=== PATIENT | female | born 1980 | race Hispanic/Latino ===

== ENCOUNTER 2017-01-24 06:54 | Emergency (ER) | payer OTHER ==
[2017-01-22 17:57] VITALS: BMI 34.0
--- NOTE | 2017-01-24 09:28 | US ---
PROCEDURE: Limited obstetrical ultrasound examination HISTORY: decreased movement at 40w COMPARISON: 01/22/2017 TECHNIQUE: Limited examination was performed for evaluation of biophysical profile. FINDINGS: A single live intrauterine gestation is identified in cephalic presentation. The heart rate is 147 beats per minute. A normal anterior placenta is identified. biometry was not performed at this time. Amniotic fluid volume is 9.94 cm. This is above the 5th percentile for a 40 week gestation. Biophysical profile score is 8 out of 8. IMPRESSION: Biophysical profile score is 8 out of 8. biometry is not performed at this time. heart rate 147 beats per minute.
== END 2017-01-24 10:40 | disposition home or self-care (01) ==
LOC: H.EROB2 06:54
DX: O47.1 False labor at or after 37 completed weeks of gestation (principal); Z3A.40 40 weeks gestation of pregnancy; O48.0 Post-term pregnancy; O36.8131 Decreased fetal movements, third trimester, fetus 1

== ENCOUNTER 2017-01-29 12:55 | Inpatient (IN) | payer OTHER ==
[2017-01-29 13:07] VITALS: BMI 34.5
[2017-01-29] MEDS: Lactated Ringer's 1,000 ML IV SCH ×2 (13:30→22:10)
[2017-01-29 14:37] VITALS: BP 133/85; PULSE 90; RESP 18; TEMP 98
[2017-01-29 15:25] LABS: HEMATOCRIT 34.2 % (34.0-47.0); MEAN CELL VOLUME 94.7 fl (81.0-99.0); MEAN CORPUSCULAR HEMOGLOBIN 31.8 pg (27.0-31.0); MEAN CORPUSCULAR HGB CONC 33.6 g/dL (33.0-37.0); RED CELL DISTRIBUTION WIDTH 14.8 % (11.5-14.5); WHITE BLOOD COUNT 8.9 K/uL (4.8-10.8)
--- NOTE | 2017-01-29 15:30 | OBADHP ---
Datetime: 01/29/2017 13:29 Admit Comment, IP Provider: 35yo G1 edc 3/14 by lmp _ early 1st trim us referred foradmission of ind uction by dr leal. Denies ctxs, vag bleeding or prom. Denies h/a, scotomata, ruq pain, n/v. 31lb wt gain with preg pmhx: denies pshx: bunionectomy; surgery for hammer toe allergy:naproxen medic : pnv shx: denies etoh, drugs , tobacco i: 40.6wks Induction p: Nurse Carmel spoke with Dr. Leal who gave verbal admission orders- for induction with cytotec hiv, rpr and rout admit labs Presentation-Admit: Vertex FHR - Baseline A Provider: 130 Membranes, Provider: Intact Comments, ACOG Physical Exam: O+/hiv, rpr,hepB,gbs neg ri Vital Signs Provider: Reviewed; Within Normal Limits (Annotations: Data stored by CPN on behalf of user) IP Chief Complaint: Scheduled induction of labor NICHD Variability Prov Fetus A: Minimal - Undetectable to <5bpm NICHD Accel Fetus A IP Provider: [id number] FHR Category Provider Fetus A: Category I NICHD Decel Fetus A IP Provider: None EGA AdmitDate IP: 40.6 IP Adm Impression: Postterm, intrauterine IP Admit Plan: Admit to unit; Initiate labor induction protocol Datetime: 01/24/2017 07:46 IP Hx Assessment: The History has been Reviewed and is Current Datetime: 01/22/2017 18:28 Pelvic Type - PN: Not Done Extremities - PN: Normal Abdomen - PN: Normal Lungs - PN: Normal Neurologic - PN: Normal HEENT - PN: Normal General - PN: Normal Vital Signs Provider Details: 130-80-90 Genitourinary Exam: Not Done
[2017-01-30] MEDS: Lactated Ringer's 1,000 ML IV SCH ×2 (07:17→15:00)
--- NOTE | 2017-01-30 10:21 | OBPN ---
Datetime: 01/30/2017 09:50 IP Progress Impression: Reassuring heart rate IP Informed Consent Obtain: Vaginal Delivery; Risks, Benefits and Alternatives Discussed IP Progress Plan: Continue present management; Induction Pool Provider: Negative Membranes, Provider: Intact FHR - Baseline A Provider: 140 IP Progress Note Comment: OB Hospitalist product demonstrator Asked to placed intravaginally by Dr Killian...Cervidil placed NICHD Accel Fetus A IP Provider: 15X15 FHR Category Provider Fetus A: Category I NICHD Variability Prov Fetus A: Moderate 6-25bpm Dilatation, Provider: FT Effacement, Provider: 0 Datetime: 01/29/2017 13:29 Presentation-Admit: Vertex Vital Signs Provider: Reviewed; Within Normal Limits (Annotations: Data stored by CPN on behalf of user) NICHD Decel Fetus A IP Provider: None Datetime: 01/22/2017 18:28 Vital Signs Provider Details: 130-80-90
[2017-01-30] MEDS ORDERED: Lactated Ringer's 1,000 ML IV SCH (17:45)
[2017-01-30] MEDS ORDERED: Bupivacaine HCl 0.25% PF (10 ml) Inj ONE (18:02)
[2017-01-30] MEDS ORDERED: Fentanyl/Bupivacaine HCl 250 ML EPI ONE (18:02)
[2017-01-30] MEDS ORDERED: Oxytocin 30 units/LR 500ML 500 ML IV SCH (22:15)
--- NOTE | 2017-01-30 22:17 | OBPN ---
Datetime: 01/30/2017 22:10 IP Progress Impression: Reassuring heart rate IP Informed Consent Obtain: Vaginal Delivery; Risks, Benefits and Alternatives Discussed IP Progress Plan: Continue present management; Induction IP Progress Note Comment: Notified that Cervidil removed...no cervicla change. Case discussed with Dr Killian...start Pitocin. This was discussed with patient earlier today. S he understood medications for IOL
[2017-01-31] MEDS ORDERED: Bicitra 30 ML UD PO STA (00:03)
--- NOTE | 2017-01-31 02:55 | CP.PCM.CON ---
History of Present Illness - History of Present Illness History of Present Illness: CC/Reason for consult: CP HPI: This is a 36 y/o female with no medical problems who is undergoing induction of labor. She c/o chest heaviness from just a little bit earlier. Denies any radiation of pain, denies SOB. States she has never had these symptoms previously. Was having reflux symptoms earlier. MHx: None SHx: None Allergies: Naproxen Medications: PNV Family Hx: No relevant cardiac, pulmonary conditions; no PE/DVTs as far as she is aware Social Hx: No relevant findings Past Patient History - Past Social History Smoking Status: Never Smoked - GASTROINTESTINAL Hx Gastritis: Yes - PSYCHIATRIC Hx Substance Use: Yes (Stoppped 1 week ago) - SURGICAL HISTORY Hx Orthopedic Surgery: Yes Meds Allergies/Adverse Reactions: Allergies Allergy/AdvReac Type Severity Reaction Status Date / Time naproxen AdvReac DIZZINESS Verified 01/29/17 13:07 - Medications Medications: Current Medications Oxytocin (Oxytocin 30 Units/Lr 500ml) 500 mls @ 20.833 mls/hr IV .Q24H TESHA PRN Reason: Protocol Last Admin: 01/30/17 22:45 Dose: 2 mls/hr Results - Vital Signs Recent Vital Signs: Last Vital Signs Temp 98.0 F 01/29/17 14:00 Pulse 90 01/29/17 14:00 Resp 18 01/29/17 14:00 BP 133/85 01/29/17 14:00 Pulse Ox - Labs Result Diagrams: 01/29/17 15:00 Labs: Laboratory Results - last 24 hr 01/29/17 15:00 RPR Nonreactive Assessment & Plan (1) Chest pain Assessment and Plan: 36 y/o female with no medical conditions who is having induction of labor and had some chest heaviness. Patient is currently comfortable with stable/wnl vital signs currently. Does not appear to have any cardiac history, pulmonary history, or any family history of DVT/PE as far as she knows. WThis is unlikely to be a primarily cardiac or respiratory issue. PE is a possibility, but thus far no tachycardia or hypoxia. May be reaction to medication that she has received (unable to determine at this time. as having reflux symptoms previousl , and this maybe related to that. Will perform the following w/u -Obtain BMP, Trop -Obtain d-dimer, if very elevated consider further w/u for PE. -Obtain EKG -Obtain CXR -->Will also start patient protonix as this will be safe from OB perspective Status: Acute
--- NOTE | 2017-01-31 03:09 | OBPN ---
Datetime: 01/31/2017 02:45 IP Progress Note Comment: OB Hospitalist computer operations manager ... Notified that pt c/o chest pain...midline non r adiating. Earlier, she was given Bicitra at 12:38am for heart burn lie symptoms Pulse Ox 100% room air IN NAD Lungs CTA B/L Back epiduiral in place A: Term preg chest pain P: on Pitoicn 1cc/h currently EKG/medicine consult/Dr Gallardo contacted
[2017-01-31] MEDS ORDERED: Pantoprazole 40 mg EC Tab PO SCH (03:17)
[2017-01-31 04:07] LABS: BLOOD UREA NITROGEN 8 mg/dl (7-17); CARBON DIOXIDE 20 mmol/L (22-30); CHLORIDE 107 mmol/L (98-107); GFR AFRICAN-AMERICAN > 60; GLUCOSE,RANDOM 90 mg/dL (65-105); POTASSIUM 3.9 MMOL/L (3.6-5.0); SODIUM 134 mmol/l (132-148)
[2017-01-31] MEDS ORDERED: Bupivacaine HCl 0.25% PF (10 ml) Inj ONE (04:16)
[2017-01-31] MEDS ORDERED: Fentanyl/Bupivacaine HCl 250 ML EPI ONE (09:51)
[2017-01-31] MEDS ORDERED: Oxycodone/Acetaminophen 5/325 mg Tab PO PRN ×2 (09:53→14:44)
[2017-01-31] MEDS ORDERED: Benzocaine/Menthol SPRAY TOP PRN (09:53)
[2017-01-31] MEDS ORDERED: Lactated Ringer's 1,000 ML IV SCH (10:00)
[2017-01-31] MEDS ORDERED: Oxytocin 30 units/LR 500ML 500 ML IV SCH (10:00)
[2017-01-31] MEDS ORDERED: Lidocaine 1% Inj (20ml) ONE (11:04)
[2017-01-31] MEDS ORDERED: Oxytocin 30 units/LR 500ML 500 ML IV ONE (11:15)
--- NOTE | 2017-01-31 11:32 | RAD ---
PROCEDURE: CHEST RADIOGRAPH, 1 VIEW. Technique: Single view portable erect @ 03:20. HISTORY: CP COMPARISON: Multi FINDINGS: LUNGS: Clear. PLEURA: No pneumothorax or pleural fluid seen. CARDIOVASCULAR: Normal. OSSEOUS STRUCTURES: No significant abnormalities. VISUALIZED UPPER ABDOMEN: Normal. OTHER FINDINGS: None. IMPRESSION: No active disease.
--- NOTE | 2017-01-31 12:02 | OBDS ---
DELIVERY PERSONNEL Delivery Doctor: Sobia Killian MD Business Area Director: Meg Sandhu RN/ guillermo Caruso Rn Anesthesiologist: Neno Huff MD MATERNAL INFORMATION Delivery Anesthesia: Epidural Placenta Cultured: No Maternal Complications: None LABOR SUMMARY EDC: 01/25/2017 00:00 No. Babies in Womb: 1 Attempted: No Labor Anesthesia: Epidural LABOR INFORMATION Reason for Induction: Postterm Onset of Labor: 01/29/2017 13:30 (Annotations: pt has contractions every 10minutes) Complete Dilatation: 01/31/2017 10:06 Cervical Ripening Agents: Cervidil Oxytocin: Induction Group B Beta Strep: Negative Antibiotics # of Doses: N/A Antibiotics Time of Last Dose: N/A Steroids Given: None Reason Steroids Not Administered: Not Applicable MEMBRANES Membranes Rupture Method: Artificial Rupture of Membranes: 01/31/2017 09:03 Amniotic Fluid Color: Clear Amniotic Fluid Amount: Small Amniotic Fluid Odor: None STAGES OF LABOR Stage 1 hrs: 44 Stage 1 min: 36 VAGINAL DELIVERY Episiotomy: Median Laceration Extension: Second Degree Laceration Type: Perineal Laceration Repair: Yes Laceration Repair Note: Patient was repaired with 2.0 Chromic suture w/o difficulty. Local anesthesi a was used. Placenta deliverd sponatanoue intact. Sponge Count Correct: Yes Sharps Count Correct: Yes CSECTION DELIVERY Primary Indication: N/A Secondary Indication: N/A CSection Urgency: N/A CSection Incidence: N/A Labor: N/A Elective: N/A CSection Incision: N/A BABY A INFORMATION Method of Delivery: Vaginal Born in Route : Yes : N/A Forceps: N/A Vacuum Extraction: N/A Shoulder Dystocia : No PRESENTATION/POSITION BABY A Presentation: Cephalic INFORMATION BABY A Gestational Age at Delivery: 40.6 Gestational Status: Term Infant Outcome : Liveborn Condition : Stable IDENTIFICATION/MEDS BABY A ID Band Number: [id number] ID Band Location: Left Leg; Left Arm
[2017-02-01] MEDS: Pantoprazole 40 mg EC Tab PO SCH (08:37)
[2017-02-01] MEDS: Benzocaine/Menthol SPRAY TOP PRN (08:48)
[2017-02-01 09:42] LABS: BASO % 0.2 % (0.0-2.0); EOS # 0.3 K/uL (0.0-0.7); EOS % 1.7 % (0.0-4.0); HEMATOCRIT 27.7 % (34.0-47.0); LYMPH # 1.9 K/uL (1.0-4.3); MEAN CELL VOLUME 94.5 fl (81.0-99.0); MEAN CORPUSCULAR HEMOGLOBIN 31.1 pg (27.0-31.0); MEAN CORPUSCULAR HGB CONC 32.9 g/dL (33.0-37.0); MEAN PLATELET VOLUME 8.7 fl (7.2-11.7); MONO # 0.9 K/uL (0.0-0.8); MONO % 5.8 % (0.0-10.0); NEUT # 11.9 K/uL (1.8-7.0); NEUT % 79.3 % (50.0-75.0)
[2017-02-01] MEDS ORDERED: TDAP Vaccine 0.5 mL Syr IM ONE (09:43)
[2017-02-01] MEDS ORDERED: Measles, Mumps, and Rubella Vaccine SC ONE (09:53)
--- NOTE | 2017-02-01 09:55 | OBPPN ---
Datetime: 02/01/2017 09:50 PP Pain Prov: Within normal limits PP Nausea Prov: Denies PP Flatus Prov: Yes PP BM Prov: No PP Breasts Prov: Normal PP Heart Prov: Normal PP Lungs Prov: Normal PP Abdomen/Uterus Prov: Normal PP Lochia Prov: Normal PP Vulva/Perineum Prov: Normal PP CVA Tenderness Prov: Normal PP Extremities Prov: Normal PP Progress Prov: Normal PP Comments Phys Exam Prov: fundus firm perineum slightly swollen PP Impression Prov: Normal progression PP Plan Prov: Continue present management PP Progress Note Prov: A/ S/P stable P/ Continue current care and d/c to homein the am if am IP PP Procedures Comments: tdap Vital Signs Provider PP: Within Normal Limits
--- NOTE | 2017-02-01 11:09 | OBHP ---
Datetime: 01/30/2017 09:50 IP Adm Impression: Term, intrauterine IP Admit Plan: Admit to unit; Initiate labor induction protocol FHR - Baseline A Provider: 140 Membranes, Provider: Intact Pool Provider: Negative IP Indication for Induction: Other NICHD Variability Prov Fetus A: Moderate 6-25bpm NICHD Accel Fetus A IP Provider: 15X15 FHR Category Provider Fetus A: Category I Datetime: 01/29/2017 13:29 Pelvic Type - PN: Adequate Extremities - PN: Normal Abdomen - PN: Normal Back - PN: Normal Breast - PN: Normal Lungs - PN: Normal Heart - PN: Normal Thyroid - PN: Normal Neurologic - PN: Normal HEENT - PN: Normal General - PN: Normal Presentation-Admit: Vertex Comments, ACOG Physical Exam: O+/hiv, rpr,hepB,gbs neg ri Gestation - Est Wks by US: 40.0 IP Hx Assessment: The History has been Reviewed and is Current EGA AdmitDate IP: 40.4 Vital Signs Provider: Reviewed; Within Normal Limits (Annotations: Data stored by CPN on behalf of user) IP Chief Complaint: Scheduled induction of labor NICHD Decel Fetus A IP Provider: None Dilatation, Provider: 0 Effacement, Provider: 50 Station, Provider: -2 Genitourinary Exam: Normal DTRs - PN: Normal Datetime: 01/24/2017 07:46 Admit Comment, IP Provider: 35yo G1 edc 3/14 by lmp c/op decreased FM since last night. No SROM. no VB. no CTX pmhx: denies pshx: bunionectomy; surgery for hammer toe allergy:naproxen medic : pnv shx: denies etoh, drugs , tobacco A: IUP at 40w 1d decreased FM PLAN: spoke to Dr Killian...obtain bpp condition expained to pt,..she understands
[2017-02-01] MEDS: Hydrocortisone 2.5% (Rectal) CREAM PR SCH (18:58)
[2017-02-02 07:24] LABS: BASO % 0.2 % (0.0-2.0); EOS # 0.3 K/uL (0.0-0.7); EOS % 2.8 % (0.0-4.0); HEMATOCRIT 25.8 % (34.0-47.0); LYMPH # 1.9 K/uL (1.0-4.3); LYMPH % 18.2 % (20.0-40.0); MEAN CELL VOLUME 95.2 fl (81.0-99.0); MEAN CORPUSCULAR HEMOGLOBIN 31.5 pg (27.0-31.0); MEAN CORPUSCULAR HGB CONC 33.1 g/dL (33.0-37.0); MEAN PLATELET VOLUME 8.8 fl (7.2-11.7); MONO # 0.8 K/uL (0.0-0.8); MONO % 7.5 % (0.0-10.0); NEUT # 7.5 K/uL (1.8-7.0); NEUT % 71.3 % (50.0-75.0); NRBC % 0.1 % (0.0-0.0); RED CELL DISTRIBUTION WIDTH 15.2 % (11.5-14.5); WHITE BLOOD COUNT 10.5 K/uL (4.8-10.8)
[2017-02-02] MEDS: Benzocaine/Menthol SPRAY TOP PRN (10:29)
[2017-02-02] MEDS: Hydrocortisone 2.5% (Rectal) CREAM PR SCH (10:30)
[2017-02-02] MEDS: Pantoprazole 40 mg EC Tab PO SCH (10:30)
== END 2017-02-02 16:45 | disposition home or self-care (01) | DRG 775 ==
LOC: H.EROB2 12:55 → H.L&D 13:14 → H.OB/GYN 01-31 13:50
PROVIDERS: ADMIT Specialist; ATTEND Specialist
PROC: 4A1HXCZ Monitoring of Products of Conception, Cardiac Rate, External Approach (ICD-10-PCS; 2017-01-29)
PROC: 0W8NXZZ Division of Female Perineum, External Approach (ICD-10-PCS; principal; 2017-02-01)
PROC: 10E0XZZ Delivery of Products of Conception, External Approach (ICD-10-PCS; 2017-02-01)
DX: O48.0 Post-term pregnancy (principal); O09.513 Supervision of elderly primigravida, third trimester; O70.1 Second degree perineal laceration during delivery; Z37.0 Single live birth; Z3A.40 40 weeks gestation of pregnancy

== ENCOUNTER 2018-05-16 07:43 | Emergency (ER) | payer OTHER, BC ==
[2018-05-16 07:55] VITALS: BMI 32.7
--- NOTE | 2018-05-16 08:11 | ED PDOC ---
HPI: Back Time Seen by Provider: 05/16/18 08:00 Chief Complaint (Nursing): Back Pain History Per: Patient Onset/Duration Of Symptoms: Days (2) Current Symptoms Are (Timing): Still Present Severity: Moderate Previous Symptoms: Back Pain Associated Symptoms: None Exacerbating Factor(s): Movement, Other (coughing, sneezing) Additional Complaint(s): Left sided low back pain radiating to left lower quadrant. No urinary sxs. No fever. No weakness or parasthesias. H/o pinched nerve 15 months ago. No new injury Past Medical History Vital Signs: Last Vital Signs Temp 98.2 F 05/16/18 07:53 Pulse 96 H 05/16/18 07:53 Resp 16 05/16/18 07:53 BP 110/72 05/16/18 07:53 Pulse Ox 97 05/16/18 07:53 - Medical History PMH: Back Problems, Gastritis, GERD - Family History Family History: States: Unknown Family Hx - Home Medications Home Medications: Ambulatory Orders Medication Instructions Recorded Meclizine [Meclizine*] 25 mg PO TID #21 tab 10/08/15 Ibuprofen [Motrin Tab] 600 mg PO Q6 PRN #10 tab 02/02/17 Pantoprazole [Protonix EC Tab] 40 mg PO DAILY #10 ect 02/02/17 Multivit/Folic Acid/I 1 tab PO DAILY #10 tab 02/02/17 [] Cyclobenzaprine [Cyclobenzaprine 10 mg PO TID #10 tab 05/16/18 HCl] Methylprednisolone [Medrol Dose 4 mg PO DAILY #21 tab 05/16/18 Pack (21 tabs)] - Allergies Allergies/Adverse Reactions: Allergies Allergy/AdvReac Type Severity Reaction Status Date / Time naproxen AdvReac DIZZINESS Verified 01/29/17 13:07 Review of Systems Constitutional: Negative for: Fever ENT: Positive for: Nose Congestion Respiratory: Positive for: Cough Genitourinary Female: Negative for: Dysuria, Frequency, Incontinence Musculoskeletal: Positive for: Back Pain Neurological: Negative for: Weakness, Numbness Physical Exam - Physical Exam Appears: Positive for: Non-toxic, No Acute Distress Skin: Positive for: Normal Color, Warm, DRY ENT: Positive for: Normal ENT Inspection. Negative for: Sinus Pain/Drainage, Tonsillar Exudate, Tonsillar Swelling Cardiovascular/Chest: Positive for: Regular Rate, Rhythm Respiratory: Positive for: CNT, Normal Breath Sounds Back: Positive for: Normal Inspection, Muscle Spasm (left lumbar area). Negative for: Vertebral Tenderness Neurologic/Psych: Positive for: Alert, Oriented. Negative for: Motor/Sensory Deficits - ECG O2 Sat by Pulse Oximetry: 97 Disposition - Clinical Impression Clinical Impression: Back pain, Ovarian cyst - Patient ED Disposition Is Patient to be Admitted: No - Disposition Referrals: [facility] [Outside] Disposition: Routine/Home Disposition Time: 12:30 Condition: FAIR Prescriptions: Cyclobenzaprine [Cyclobenzaprine HCl] 10 mg PO TID #10 tab Methylprednisolone [Medrol Dose Pack (21 tabs)] 4 mg PO DAILY #21 tab Instructions: Ovarian Cysts, Low Back Pain in Adults Forms: [facility] ([place] Citizen)
--- NOTE | 2018-05-16 10:46 | CT ---
PROCEDURE: CT Abdomen and Pelvis without intravenous contrast HISTORY: r/o kidney stone COMPARISON: None. TECHNIQUE: Without contrast.. Contrast dose: 0 Radiation dose: Total exam DLP = 534.04 mGy-cm. This CT exam was performed using one or more of the following dose reduction techniques: Automated exposure control, adjustment of the mA and/or kV according to patient size, and/or use of iterative reconstruction technique. FINDINGS: LOWER THORAX: Unremarkable. LIVER: Unremarkable. No gross lesion or ductal dilatation. GALLBLADDER AND BILE DUCTS: Unremarkable. PANCREAS: Unremarkable. No gross lesion or ductal dilatation. SPLEEN: Unremarkable. ADRENALS: Unremarkable. No mass. KIDNEYS AND URETERS: Unremarkable. No hydronephrosis. No solid mass. VASCULATURE: Unremarkable. No aortic aneurysm. BOWEL: Unremarkable. No obstruction. No gross mural thickening. APPENDIX: Unremarkable. Normal appendix. PERITONEUM: Unremarkable. No free fluid. No free air. LYMPH NODES: Unremarkable. No enlarged lymph nodes. BLADDER: Unremarkable. REPRODUCTIVE: Normal uterus. Probable 2 cm right ovarian cyst. Correlate with pelvic ultrasound. . BONES: No acute fracture. OTHER FINDINGS: None. IMPRESSION: Probable cm right ovarian cyst. Correlate with ultrasound. No evidence urinary calculus or urinary tract obstruction. No additional abnormality.
[2018-05-16 12:24] VITALS: TEMP 98
[2018-05-16 12:47] VITALS: BP 121/72; PULSE 69; RESP 16; O2SAT 100
== END 2018-05-16 12:45 | disposition home or self-care (01) ==
LOC: H.ER 07:43
DX: N83.202 Unspecified ovarian cyst, left side (principal); K21.9 Gastro-esophageal reflux disease without esophagitis